=== PATIENT | female | born 1935 | race Caucasian/White ===

== ENCOUNTER → 2019-08-28 | Outpatient (REF) | payer MEDICARE | LOC: M LAB LCGH 10:37 | PROVIDERS: ATTEND Physician Assistant | DX: D48.5 Neoplasm of uncertain behavior of skin (principal) ==

== ENCOUNTER → 2021-11-13 | Outpatient (REF) | payer MEDICARE | LOC: M SFHCDERM 14:05 | PROVIDERS: ATTEND Dermatology | DX: L03.116 Cellulitis of left lower limb (principal) ==

== ENCOUNTER → 2022-02-11 | Outpatient (REF) | payer MEDICARE | LOC: M SFHCDERM 13:56 | PROVIDERS: ATTEND Dermatology | DX: Z53.9 Procedure and treatment not carried out, unspecified reason (principal) ==